=== PATIENT | female | born 1980 | race Caucasian/White ===

== ENCOUNTER 2023-01-21 15:11 | Emergency (ER) | payer OTHER ==
[~2023-01-21] VITALS: Ht 157.5 cm; Wt 61.2 kg
[2023-01-21 15:15] VITALS: BP 124/84; PULSE 110; RESP 16
[2023-01-21 15:47] LABS: HEMATOCRIT 29.1 % (36-48); MEAN CORPUSCULAR HEMOGLOBIN 21.3 pg (27.0-33.0); MEAN CORPUSCULAR HGB CONC 28.9 g/dL (32.0-36.0); MEAN CORPUSCULAR VOLUME 73.9 fL (79-99); PLATELET COUNT (AUTO) 272 K/uL (130-400); RED BLOOD CELL COUNT(AUTO) 3.94 MIL/uL (4.00-5.50); RED CELL DISTRIBUTION WIDTH 19.9 % (11.0-15.5); WHITE BLOOD COUNT (AUTO) 11.3 K/uL (4.8-10.8)
[2023-01-21 15:51] LABS: APPEARANCE,URINE CLOUDY (CLEAR); BILIRUBIN,URINE NEGATIVE (NEGATIVE); COLOR,URINE YELLOW (YELLOW); GLUCOSE, URINE (UA) NEGATIVE (NEGATIVE); KETONES,URINE NEGATIVE (NEGATIVE); LEUKOCYTE ESTERASE ,URINE 250 Leu/uL (NEGATIVE); NITRATE,URINE NEGATIVE (NEGATIVE); OCCULT BLOOD,URINE NEGATIVE (NEGATIVE); PH,URINE 8.5 (5.0-8.0); PROTEIN,URINE 30 mg/dL (NEGATIVE); UROBILINOGEN,URINE 3 mg/dL (0.2-1.0)
[2023-01-21 15:52] LABS: ADD UA MICROSCOPIC YES
[2023-01-21 15:55] LABS: BACTERIA,URINE RARE /HPF (None Seen); SQUAMOUS EPITHELIAL CELL,UR MANY /HPF (0-2); WBC,URINE 51-100 /HPF (0-1)
[2023-01-21 15:58] LABS: CREATININE 0.8 mg/dL (0.5-1.5); POTASSIUM 3.6 mmol/L (3.5-5.1)
[2023-01-21 16:02] LABS: ALBUMIN 3.8 g/dL (3.5-5.0); BILIRUBIN,TOTAL 0.5 mg/dL (0.2-1.0)
[2023-01-21] MEDS ORDERED: ACETAMINOPHEN 500 MG TABLET PO ONE (18:30)
[2023-01-21] MEDS ORDERED: ONDANSETRON 4MG INJ IVP ONE (18:30)
[2023-01-21] MEDS ORDERED: 0.9%NACL 1000ML 1,000 ML IV ONE (18:30)
[2023-01-21 19:29] LABS: RAPID GROUP A STREP negative (NEGATIVE)
[2023-01-21 19:33] LABS: SARS-CoV-2, RNA, NAAT NEGATIVE SARS CoV-2 (NEGATIVE)
[2023-01-21 19:39] LABS: INFLUENZA TYPE A Negative For Type A (NEGATIVE); INFLUENZA TYPE B Negative For Type B (NEGATIVE)
[2023-01-21] MEDS ORDERED: CEFTRIAXONE 1G VIAL IVPB ONE (20:30)
[2023-01-21] MEDS ORDERED: CEPH500B PO (22:29)
[2023-01-21 22:44] VITALS: TEMP 98.9
== END 2023-01-21 22:43 | disposition home or self-care (01) ==
LOC: EDH 15:11
DX: O23.41 Unspecified infection of urinary tract in pregnancy, first trimester (principal); N39.0 Urinary tract infection, site not specified; Z3A.01 Less than 8 weeks gestation of pregnancy; E78.00 Pure hypercholesterolemia, unspecified; Z20.822 Contact with and (suspected) exposure to COVID-19
CPT/HCPCS: 99285; 96365; 76801; 87635; 96361; 96375; 80053; 84702; 83690; 85027; 87077; 87088; 87186; 87880; 87804 ×2; 81001; 81025; 36415; C9803; J7030; J0696; J2405

== ENCOUNTER 2023-03-12 15:09 | Observation (INO) | payer OTHER ==
[~2023-03-12] VITALS: Ht 157.5 cm; Wt 62.6 kg
[~2023-03-12 15:09] MED LIST: CEPH500B PO
[2023-03-12 18:19] LABS: HEMATOCRIT 32.7 % (36-48); MEAN CORPUSCULAR HEMOGLOBIN 24.1 pg (27.0-33.0); MEAN CORPUSCULAR HGB CONC 29.7 g/dL (32.0-36.0); MEAN CORPUSCULAR VOLUME 81.3 fL (79-99); PLATELET COUNT (AUTO) 261 K/uL (130-400); RED BLOOD CELL COUNT(AUTO) 4.02 MIL/uL (4.00-5.50); RED CELL DISTRIBUTION WIDTH 22.8 % (11.0-15.5); WHITE BLOOD COUNT (AUTO) 9.1 K/uL (4.8-10.8)
[2023-03-12 18:22] LABS: APPEARANCE,URINE CLOUDY (CLEAR); BILIRUBIN,URINE NEGATIVE (NEGATIVE); COLOR,URINE LIGHT-YELLOW (YELLOW); GLUCOSE, URINE (UA) NEGATIVE (NEGATIVE); KETONES,URINE NEGATIVE (NEGATIVE); LEUKOCYTE ESTERASE ,URINE NEGATIVE Leu/uL (NEGATIVE); NITRATE,URINE NEGATIVE (NEGATIVE); OCCULT BLOOD,URINE LARGE (NEGATIVE); PROTEIN,URINE NEGATIVE (NEGATIVE); UROBILINOGEN,URINE 0.2 mg/dL (0.2-1.0)
[2023-03-12 18:23] LABS: ADD UA MICROSCOPIC YES
[2023-03-12 18:24] LABS: HCG,QUALITATIVE URINE POSITIVE (NEGATIVE)
[2023-03-12 18:26] LABS: BACTERIA,URINE RARE /HPF (None Seen); MUCUS,URINE RARE LPF (None Seen); SQUAMOUS EPITHELIAL CELL,UR MOD /HPF (0-2); UNCLASSIFIED CRYSTAL 4 /HPF (None Seen); YEAST,URINE BUDDING FEW /HPF (None Seen)
[2023-03-12 18:30] LABS: CREATININE 0.5 mg/dL (0.5-1.5); POTASSIUM 3.5 mmol/L (3.5-5.1)
[2023-03-12 21:38] VITALS: O2SAT 97
[2023-03-12] MEDS: LACTATED RINGERS 1000ML 1,000 ML IV SCH (21:53)
[2023-03-12 22:00] VITALS: BP 121/68; PULSE 84; RESP 20
[2023-03-12] MEDS ORDERED: METF-446 PO (22:15)
[2023-03-12] MEDS ORDERED: PRENATAL VITAMIN PO (22:15)
[2023-03-13 03:15] VITALS: BP 92/58; PULSE 77; RESP 20
[2023-03-13] MEDS: LACTATED RINGERS 1000ML 1,000 ML IV SCH (05:04)
[2023-03-13 07:25] VITALS: BP 102/60; PULSE 73; RESP 18
[2023-03-13] MEDS ORDERED: ACETAMINOPHEN 325 MG TAB PO ONE (10:30)
[2023-03-13 11:15] VITALS: BP 111/71; PULSE 89; RESP 18
== END 2023-03-13 12:00 | disposition home or self-care (01) ==
LOC: EDH 15:09 → EDHIP 21:13 → WSH 22:38
PROVIDERS: ADMIT Obstetrics & Gynecology; ATTEND Obstetrics & Gynecology
DX: O20.0 Threatened abortion (principal); E78.00 Pure hypercholesterolemia, unspecified; Z3A.13 13 weeks gestation of pregnancy
CPT/HCPCS: 96360; 96361 ×2; 99284; 80048; 84702; 85027; 86900; 86901; 81001; 81025; 36415; 76801; G0378 ×15; J7120